=== PATIENT | male | born 1995 | race Caucasian/White ===

== ENCOUNTER 2017-10-25 03:08 | Emergency (ER) | payer BC ==
[~2017-10-25] VITALS: Ht 182.9 cm; Wt 65.2 kg
[2017-10-25 03:17] VITALS: TEMP 36.8; Ht 182.9 cm; Wt 65.2 kg
[2017-10-25] MEDS ORDERED: ONDANSETRON HOME PACK 4MG OD TAB PO ONE (03:30)
[2017-10-25] MEDS ORDERED: ONDANSETRON 4MG OD TAB PO ONE (03:30)
--- NOTE | 2017-10-25 05:01 | EMERGENCY ROOM VISIT NOTE ---
History First contact with patient: 03:27 Chief Complaint: VOMITING Stated Complaint: VOMITING,DIARRHEA Nursing Triage Summary: Pt states that he has had nausea, vomiting and diarrhea for the past hour. Pt states that his abdomen is cramping. Pt has not taken anything for the symptoms. History of Present Illness The patient is a 21 year old male who presents to the Emergency Room with complaints of nausea, vomiting, diarrhea for the past few hours. Patient denies recent antibiotics or bad food exposure. Patient denies chest pain, dyspnea, fever, chills, cough, congestion, blood or black in the stool. Patient complains of mild cramping without localized pain to the abdomen. Review of Systems An 10 system review of systems was completed with positives and pertinent negatives listed in the HPI. Past Medical/Surgical History none Social History Smoking Status: Never Smoker Smokeless Tobacco Use: No Drug Use: none Occupation Status: [employer] student Physical Exam Vital Signs Date Time Temp Pulse Resp B/P (MAP) Pulse Ox O2 Delivery O2 Flow Rate FiO2 10/25/17 03:17 36.8 101 18 106/63 95 Room Air Physical Exam VITALS: Vitals are noted on the nurse's note and reviewed by myself. Vital signs stable. GENERAL: Pleasant male drinking Gatorade, in no acute distress, nondiaphoretic, well-developed well-nourished. SKIN: Capillary reflex less than 2 seconds. HEENT: Normocephalic. PERRLA. EOMI. Nares patent. Mucous membranes moist. Neck is supple without nuchal rigidity. HEART: Regular rate and rhythm without murmurs gallops or rubs. LUNGS: Clear to auscultation bilaterally without wheezes, rales or rhonchi. No retractions or accessory muscle use. ABDOMEN: Positive bowel sounds x 4. Normal tympanic percussion. Soft, nontender, without masses or organomegaly. Sanchez sign negative. No guarding or rebound tenderness. MUSCULOSKELETAL: No gross musculoskeletal defects. No pedal edema. No calf tenderness. NEURO: Patient was alert and oriented to person place and time. Normal sensation to light and sharp touch. No focal neurological deficits. Medical Decision & Procedures Medications Administered Medications (Trade) Dose Ordered Sig/Zion Route Start Time Stop Time Status Last Admin Dose Admin Ondansetron HCl (Zofran Odt) 4 mg ONE ONCE PO 10/25/17 03:30 10/25/17 03:31 DC 10/25/17 03:41 4 MG Ondansetron HCl (ZOFRAN ODT 4MG Home Pack) 1 homepack UD ONCE PO 10/25/17 03:30 10/25/17 03:31 DC 10/25/17 03:41 1 HOMEPACK ED Course Prior records/ancillary studies reviewed. Triage Nursing notes reviewed. The patient's history was concerning for nausea, vomiting, diarrhea, and abdominal pain. Differential diagnosis: Etiologies such as gastroenteritis, food borne illness, infections, appendicitis , diverticulitis, inflammatory bowel disease, obstruction, GI bleed, biliary pathology, as well as others were entertained. Physical examination findings: As above. Abdominal examination revealed no tenderness. Vital signs reviewed and revealed stable. ER treatment provided: P.o. fluids, Zofran On reassessment the patient felt better. Patient was tolerating p.o. intake. Diagnostics interpretation by me: Deferred This appears to be consistent with vomiting and diarrhea most likely viral in etiology. Patient is well-appearing. He does not have acute abdomen on exam. He is tolerating fluids. He was advised to rest, stay well-hydrated, take medications as directed and follow at health services a few days or here in the ER sooner for abdominal pain, fevers, vomiting, worsening signs or symptoms or as needed. By the evaluation outlined above emergent etiologies such as appendicitis, diverticulitis, obstruction, cardiac sources, mesenteric ischemia , aortic pathology, inflammatory bowel disease, renal colic, PUD, biliary pathology, UTI, as well as others were deemed relatively unlikely. The pt informed about the findings as listed above. All questions were answered and pleased with the treatment. Return instructions were outlined and the patient was discharged in stable condition. Outpatient prescription management: Zofran Referral: The patient was referred to their primary care physician for follow-up in 2 to 3 days for a recheck of the current condition. Medical Decision As above Medication Reconcilliation Current Medication List: was personally reviewed by me Blood Pressure Screening Patient's blood pressure: Normal blood pressure Impression Primary Impression: Nausea, vomiting, and diarrhea Departure Information Dispostion Home / Self-Care Condition GOOD Referrals [facility] (PCP) Patient Instructions My [facility] Additional Instructions Zofran(odansetron) tablets 4mg: Take one and allow it to dissolve in your mouth every four to six hours as needed for nausea or vomiting. Acetaminophen(Tylenol) may be used for fever or pain. Use 1000mg every six hours as needed. Avoid using more than 3000mg in a 24 hour period. Rest and drink plenty of fluids as tolerated. Slow sips of water or sports drinks are recommended instead of large amounts all at once. Continue current medications. Once your stomach is settled start with a clear liquid diet (jello, soup broth, etc.) and then advance as tolerated. You should avoid full, heavy meals for about 24 hrs from the time your symptoms resolved. Return to the ER for persistent vomiting, fevers, abdominal pain, chest pains, difficulty breathing, black or bloody stools, worsening of your condition, or as needed. Follow up with your primary physician in 2-3 days for a recheck of your current condition.
[2017-10-25 05:07] VITALS: BP 110/69; PULSE 92; O2SAT 98
== END 2017-10-25 05:09 | disposition home or self-care (01) ==
LOC: C.EDB 03:09
DX: R11.2 Nausea with vomiting, unspecified (principal); R19.7 Diarrhea, unspecified; R10.84 Generalized abdominal pain

== ENCOUNTER 2017-12-27 21:56 | Emergency (ER) | payer BC ==
[~2017-12-27] VITALS: Ht 182.9 cm; Wt 67.0 kg
[2017-12-27 22:07] VITALS: TEMP 36.7; O2SAT 99; Ht 182.9 cm; Wt 67.0 kg
[2017-12-27 22:57] LABS: BASO % 0.2 %; BASO ABS # 0.02 K/uL (0-0.2); EOS % 0.5 %; EOS ABS # 0.04 K/uL (0-0.5); HEMATOCRIT 45.5 % (42-52); HEMOGLOBIN 16.6 g/dL (14.0-18.0); IG# 0.01 K/uL (0.00-0.02); LYMPH % 24.8 %; MEAN CORPUSCULAR HEMOGLOBIN 31.7 pg (25-34); MEAN CORPUSCULAR HGB CONC 36.5 g/dl (32-36); MEAN PLATELET VOLUME 11.2 fL (7.4-10.4); MONO % 5.7 %; MONO ABS # 0.46 K/uL (0.11-0.59); NEUT % 68.7 %; NEUT ABS # 5.52 K/uL (1.4-6.5); PLATELET COUNT 154 K/uL (130-400); RED CELL DISTRIBUTION WIDTH CV 12.3 % (11.5-14.5); RED CELL DISTRIBUTION WIDTH SD 39.4 fL (36.4-46.3); WHITE BLOOD COUNT 8.05 K/uL (4.8-10.8)
[2017-12-27 23:19] LABS: ALBUMIN 4.6 gm/dl (3.4-5.0); CALCIUM 8.8 mg/dl (8.5-10.1); CREATININE 1.11 mg/dl (0.60-1.40); POTASSIUM 3.7 mmol/L (3.5-5.1)
[2017-12-27 23:29] LABS: TOTAL PROTEIN 8.5 gm/dl (6.4-8.2)
--- NOTE | 2017-12-28 05:50 | EMERGENCY ROOM VISIT NOTE ---
History First contact with patient: 22:11 Chief Complaint: ALCOHOL OVERDOSE Stated Complaint: ALCOHOL OVERDOSE Nursing Triage Summary: Patient arrives via ems. Patient was found passed out laying on [facility] lawn. Patient is a sophmore at [employer]. PT keeps repeating "I just don't want my parents to know I am here. My dads brother committed suicide back in 90's. I feel depressed. I dont want to tell them that I feel the same way." PT denies drug use. History of Present Illness The patient is a 22 year old male who presents to the Emergency Room for presumed alcohol intoxication. The patient was found sleeping outside of [facility] in the grass by a passerby. The patient was hard to awaken and EMS was contacted. The patient admits to drinking alcohol tonight but denies drug use. The patient is poor with answering questions, but states that he does not want his parents to know that he is here. The patient is very talkative about having worsening depression. When asked about suicidal ideation , the patient states that he does have thoughts of harming himself. He does have a plan, however he will not elaborate on what the plan is. The patient states that his uncle committed suicide in the 90s, and based on the conversation the patient appears very fixated on this. The patient states that he does not take medication on a regular basis. He has not had any attempts to harm himself tonight. He does not report any pain or further concerns. Review of Systems More than 10 systems were reviewed to the best of my ability. ROS is somewhat limited secondary to the patient's intoxication status. Past Medical/Surgical History No chronic medical disease Family History No pertinent family history Social History Smoking Status: Never Smoker Drug Use: none Occupation Status: [employer] student Current/Historical Medications No Active Prescriptions or Reported Meds Physical Exam Vital Signs Date Time Temp Pulse Resp B/P (MAP) Pulse Ox O2 Delivery O2 Flow Rate FiO2 12/28/17 10:17 76 18 114/71 98 Room Air 12/28/17 06:39 90 16 90/53 99 Room Air 12/28/17 04:54 65 16 98/56 99 Room Air 12/28/17 03:00 82 16 107/65 100 Room Air 12/28/17 02:26 64 12/28/17 02:00 69 16 99/53 97 Room Air 12/28/17 01:06 64 16 101/47 100 Room Air 12/28/17 00:00 73 16 108/61 98 Room Air 12/27/17 23:00 68 16 105/56 94 Room Air 12/27/17 22:09 105 12/27/17 22:07 99 Room Air 12/27/17 22:07 36.7 95 13 129/76 99 Room Air Physical Exam VITALS: Vitals are noted on the nurse's note and reviewed by myself. Vital signs stable. GENERAL: Well-developed, well-nourished, white male who appears intoxicated. He is crying and very emotional on presentation. He is overall cooperative. HEAD: Normocephalic atraumatic. EARS: External ear normal. External auditory canals clear, tympanic membranes pearly garcia without erythema or effusion bilaterally. EYES: Pupils equal round and reactive to light and accommodation. Conjunctivae without injection, sclerae without icterus. Extraocular movements intact. NOSE: Patent, turbinates without inflammation or discharge. MOUTH: Mucous membranes moist. Tonsils are not enlarged. Pharynx without erythema, blood, or exudate. Uvula midline. Airway patent. NECK: Supple without nuchal rigidity. No lymphadenopathy. No thyromegaly. Cervical spine is nontender. HEART: Regular rate and rhythm without murmurs gallops or rubs. LUNGS: Clear to auscultation bilaterally without wheezes, rales or rhonchi. No retractions or accessory muscle use. ABDOMEN: Positive normal bowel sounds x 4. Soft, nontender, without masses or organomegaly. No guarding or rebound tenderness. MUSCULOSKELETAL: No muscle atrophy, erythema, or edema noted. Full range of motion in all extremities. No tenderness to palpation. NEURO: Patient was alert to person, but not location or time Medical Decision & Procedures Laboratory Results 12/27/17 22:40 Red Blood Count 5.23, Mean Corpuscular Volume 87.0, Mean Corpuscular Hemoglobin 31.7, Mean Corpuscular Hemoglobin Concent 36.5, Mean Platelet Volume 11.2, Neutrophils (%) (Auto) 68.7, Lymphocytes (%) (Auto) 24.8, Monocytes (%) (Auto) 5.7, Eosinophils (%) (Auto) 0.5, Basophils (%) (Auto) 0.2, Neutrophils # (Auto) 5.52, Lymphocytes # (Auto) 2.00, Monocytes # (Auto) 0.46, Eosinophils # (Auto) 0.04, Basophils # (Auto) 0.02 12/27/17 22:40 Test 12/27/17 22:34 12/27/17 22:40 Urine Color YELLOW Urine Appearance CLEAR (CLEAR) Urine pH 6.0 (4.5-7.5) Urine Specific [place] 1.006 (1.000-1.030) Urine Protein NEG (NEG) Urine Glucose (UA) NEG (NEG) Urine Ketones NEG (NEG) Urine Occult Blood NEG (NEG) Urine Nitrite NEG (NEG) Urine Bilirubin NEG (NEG) Urine Urobilinogen NEG (NEG) Urine Leukocyte Esterase NEG (NEG) Urine Opiates Screen NEG (NEG) Urine Methadone, Qualitative NEG (NEG) Urine Barbiturates NEG (NEG) Urine Phencyclidine (PCP) Level NEG (NEG) Ur Amphetamine/Methamphetamine NEG (NEG) MDMA (Ecstasy) Screen NEG (NEG) Urine Benzodiazepines Screen NEG (NEG) Urine Cocaine Metabolite NEG (NEG) Urine Marijuana (THC) NEG (NEG) White Blood Count 8.05 K/uL (4.8-10.8) Red Blood Count 5.23 M/uL (4.7-6.1) Hemoglobin 16.6 g/dL (14.0-18.0) Hematocrit 45.5 % (42-52) Mean Corpuscular Volume 87.0 fL (80-100) Mean Corpuscular Hemoglobin 31.7 pg (25-34) Mean Corpuscular Hemoglobin Concent 36.5 g/dl (32-36) Platelet Count 154 K/uL (130-400) Mean Platelet Volume 11.2 fL (7.4-10.4) Neutrophils (%) (Auto) 68.7 % Lymphocytes (%) (Auto) 24.8 % Monocytes (%) (Auto) 5.7 % Eosinophils (%) (Auto) 0.5 % Basophils (%) (Auto) 0.2 % Neutrophils # (Auto) 5.52 K/uL (1.4-6.5) Lymphocytes # (Auto) 2.00 K/uL (1.2-3.4) Monocytes # (Auto) 0.46 K/uL (0.11-0.59) Eosinophils # (Auto) 0.04 K/uL (0-0.5) Basophils # (Auto) 0.02 K/uL (0-0.2) RDW Standard Deviation 39.4 fL (36.4-46.3) RDW Coefficient of Variation 12.3 % (11.5-14.5) Immature Granulocyte % (Auto) 0.1 % Immature Granulocyte # (Auto) 0.01 K/uL (0.00-0.02) Anion Gap 8.0 mmol/L (3-11) Est Creatinine Clear Calc Drug Dose 100.6 ml/min Estimated GFR () 110.2 Estimated GFR (Non- 95.1 BUN/Creatinine Ratio 12.3 (10-20) Calcium Level 8.8 mg/dl (8.5-10.1) Total Bilirubin 0.5 mg/dl (0.2-1) Aspartate Amino Transf (AST/SGOT) 21 U/L (15-37) Alanine Aminotransferase (ALT/SGPT) 24 U/L (12-78) Alkaline Phosphatase 55 U/L (45-117) Total Protein 8.5 gm/dl (6.4-8.2) Albumin 4.6 gm/dl (3.4-5.0) Globulin 3.9 gm/dl (2.5-4.0) Albumin/Globulin Ratio 1.2 (0.9-2) Lipase 169 U/L (73-393) Thyroid Stimulating Hormone (TSH) 0.771 uIu/ml (0.300-4.500) Salicylates Level < 1.7 mg/dl (2.8-20) Acetaminophen Level < 2 ug/ml (10-30) Ethyl Alcohol mg/dL 285.7 mg/dl (0-3) ED Course Physical exam and history were performed. Nursing notes, EMR, and Medication List were personally reviewed. Patient appears to have been drinking alcohol tonight and subsequently fallen asleep outside. On evaluation the patient does appear intoxicated, however he is very open in discussing his worsening depression. The patient is expressing suicidality with a plan, however he does not disclose what the plan is. He does not wish us to speak with his parents regarding this, and does not provide consent to do so. The patient on examination does not appear otherwise toxic or injury. He is not hypothermic despite the cold weather outside tonight. IV access was established and labs were obtained. The patient was monitored under alcohol precautions. He did provide a urine. The patient's blood work is as above and was reviewed. He does not have a significantly elevated white blood cell count, gross anemia, bandemia, or significant electrolyte imbalance. His alcohol is notably elevated at 285. Tylenol and salicylates are negative. Drug of abuse screen is also negative. The patient remained in stable condition throughout several hours of emergency department stay. He was able to rest comfortably under alcohol precautions. I have a very high level of concern regarding the patient's safety. His interaction with me jimmy was quite a typical and he was very veronica with his suicidality. He does not elaborate on his plan, however he appears to have thought this out for some time. Because of his discussion with me I have filled out a 302. The patient will be medically cleared once sober, at which point he will need a formal evaluation. The patient remained in stable condition until the time of shift change. The case was discussed with Kehinde Walden PA-C, who will assume care at this time. Please see Mr Walden's dictation for further course, plan, and disposition. The chart was completed utilizing [employer] Speech Voice Recognition Software. Grammatical errors, random word insertions, pronoun errors, and incomplete sentences are an occasional consequence of this system due to software limitations, ambient noise, and hardware issues. Any formal questions or concerns about the content, text, or information contained within the body of this dictation should be directly addressed to the provider for clarification. . Medical Decision Differential diagnosis: Etiologies such as mood disorder, suicidality, depression, alcohol use, substance abuse, infection, hypoglycemia, electrolyte abnormalities, cardiac sources, intracerebral event, toxicologic, neurologic, as well as others were entertained. Impression Primary Impression: Alcohol use with intoxication Additional Impression: Suicidal thoughts Departure Information Prescriptions No Active Prescriptions or Reported Meds Referrals No Doctor, Assigned (PCP) Patient Instructions My [facility] Health Problem Qualifiers
--- NOTE | 2017-12-28 08:03 | EMERGENCY ROOM VISIT NOTE ---
ED Visit Note First contact with patient: 07:43 Patient was signed out to me at 0700 hrs. on December 28, 2017 by SHANNAN Brennan. It was noted that the patient while intoxicated made comments that were concerning for potential self-harm. It was noted and relayed to me that the patient stated that he did indeed want to hurt himself and had a plan while he was under the influence of alcohol. When he was asked what his plan was, he stated that he did not want his parents to know. He did not divulge this plan. He was then allowed to rest so that he could become sober. Once he was medically cleared/became sober he was evaluated by our psychiatric dependency case manager. After a full evaluation by her, she informed me that the patient now that he is sober does not recall the events and denies any suicidal or homicidal ideation. I also talked to the patient and he does not recall the events from this evening either and has no thoughts to harm self or others. Again he denied suicidal and homicidal ideations. I did offer him follow-up with psychiatric services, however he declined as there is 3 weeks left in school. He will follow with the family doctor or return with worsening. He was educated upon cessation of alcohol. He does not appear to be harm to self or others. He was certainly invited back here with any thoughts to harm self or others or new/concerning symptoms.
[2017-12-28 10:17] VITALS: BP 114/71; PULSE 76; O2SAT 98
== END 2017-12-28 10:25 | disposition home or self-care (01) ==
LOC: EDBD 21:56 → C.EDB 21:57 → C.EDA 12-28 10:25
DX: F10.920 Alcohol use, unspecified with intoxication, uncomplicated (principal); R45.851 Suicidal ideations; Y90.8 Blood alcohol level of 240 mg/100 ml or more